=== PATIENT | male | born 1950 | race Caucasian/White ===

== ENCOUNTER → 2018-01-17 | Outpatient (CLI) | payer MEDICARE, BC ==
[~2018-01-17] MED LIST: ASPIRIN81 MG PO; ATORVASTATIN CA20 MG PO; CLOPIDOGREL75 MG PO; METOPROLOL SUCC50 MG PO; NITRO-STAT SL; RAMIPRIL5 MG PO
--- NOTE | 2018-01-17 16:29 | Diagnostic Imaging Report ---
PROCEDURE: X-RAY CHEST, TWO VIEWS COMPARISON: [facility], DX, CHEST 2 VIEWS, 04/22/2015, 13:24. INDICATIONS: COUGH FINDINGS: LUNGS: No consolidations or edema. PLEURA: No effusions or pneumothorax. HEART \T\ MEDIASTINUM: The heart is within normal size-limits. BONES \T\ SOFT TISSUES: No acute findings. There are degenerative changes of the spine. CONCLUSION: No acute thoracic abnormality. Patrick Nuñez D.O. Dictated by: Patrick Nuñez D.O. on 01/17/2018 at 16:30 Electronically approved by: Patrick Nuñez D.O. on 01/17/2018 at 16:30
== END ==
LOC: RAD 14:44
PROVIDERS: ATTEND Internal Medicine
DX: R05 Cough (principal); J20.2 Acute bronchitis due to streptococcus; I50.32 Chronic diastolic (congestive) heart failure
CPT/HCPCS: 71046

== ENCOUNTER → 2021-08-27 | Outpatient (CLI) | payer BC, MEDICARE | LOC: RAD 15:03 | PROVIDERS: ATTEND Internal Medicine | DX: S60.212A Contusion of left wrist, initial encounter (principal); M25.432 Effusion, left wrist ==